=== PATIENT | male | born 1950 | race Two or more races ===

== ENCOUNTER 2018-03-31 07:00 | Day surgery (SDC) | payer MEDICAID ==
--- NOTE | 2018-03-29 10:29 | Pre-Procedure Note/Attestation ---
Pre-Procedure Note/Attestation Complete Prior to Procedure Planned Procedure: left Procedure Narrative: phaco with iol Indications for Procedure Pre-Operative Diagnosis: cataract Attestation I attest that I discussed the nature of the procedure; its benefits; risks and complications; and alternatives (and the risks and benefits of such alternatives ), prior to the procedure, with the patient (or the patient's legal loss control representative). I attest that, if there was a reasonable possibility of needing a blood transfusion, the patient (or the patient's legal loss control representative) was given the [facility] standardized written summary, pursuant to the Jatin[place] Blood Safety Act ([place] [facility] and Safety Code # 1645, as amended). I attest that I re-evaluated the patient just prior to the surgery and that there has been no change in the patient's H&P, except as documented below: Aren Arndt MD Mar 29, 2018 10:29
--- NOTE | 2018-03-29 11:14 | Opthalmology H&P ---
Ophthalmology H&P H&P Chief Complaint: decreased vision in left eye HPI Vision Affects Ability to: read, focus/use eyes together, manage personal affairs HPI Narrative BLURRY VISION Exam Visual Acuity: OD: 20/40 OS;20/125 Tension: OD; 14 OS;13 Eye Exam: normal OU: external exam, palpebral fissure-width, marginal reflex distance, levator function, corneas, anterior chambers; findings: lens - OD; NS OS;NS, fundus exam - NPDR Assessment/Plan Diagnosis: (1) Nuclear cataract of left eye Treatment Plan: cataract extraction w/ lens implant Goals of Treatment: improvement of vision, enhance quality of life Attestation Attestation The risks and benefits of the surgery as well as alternative procedures were explained to the patient in detail. Aren Arndt MD Mar 29, 2018 11:14
[~2018-03-31] VITALS: Ht 172.7 cm; Wt 104.3 kg
[2018-03-31] VITALS (9 sets, daily range): BP systolic 111–143; BP diastolic 70–85
[~2018-03-31 07:00] MED LIST: Akten 3.5% 1ml Btl LEFT EYE ONE; Proparacaine 0.5% Opth Soln 15ml LEFT EYE ONE; Tetracaine 0.5% Opth 4ml Soln LEFT EYE ONE
[2018-03-31] MEDS: Tropicamide 1% Opth 15ml Soln LEFT EYE SCH ×3 (11:50→12:07)
[2018-03-31] MEDS: Phenylephrine 10% Opth Soln 5ml LEFT EYE SCH ×3 (11:50→12:07)
[2018-03-31] MEDS: Tobramycin Op Soln 0.3% 5ml LEFT EYE SCH ×3 (11:50→12:07)
[2018-03-31] MEDS: Diclofenac Sod 0.1% Op Soln LEFT EYE SCH ×3 (11:50→12:07)
[2018-03-31] MEDS: Cyclopentolate 1% Opth Sol 2ml LEFT EYE SCH ×3 (11:51→12:07)
[2018-03-31] MEDS ORDERED: BSS 15ml BTL ONE ×2 (12:07→12:11)
[2018-03-31] MEDS ORDERED: EPINEPHrine 1mg/1ml Amp ONE (12:07)
[2018-03-31] MEDS ORDERED: Povidone-Iodine 5% opth solution ONE (12:07)
[2018-03-31] MEDS ORDERED: BSS 500ml btl ONE (12:07)
[2018-03-31] MEDS ORDERED: Sodium Hyaluronate 14 mg/ml 0.85ml ONE (12:07)
[2018-03-31] MEDS ORDERED: GLIPIZIDE5 MG ORAL (12:13)
[2018-03-31] MEDS ORDERED: BENAZEPRIL HCL10 MG ORAL (12:13)
[2018-03-31] MEDS ORDERED: METFORMIN HCL850 M1 ORAL (12:13)
[2018-03-31] MEDS ORDERED: GABAPENTIN300 MG ORAL (12:13)
[2018-03-31] MEDS ORDERED: TAMSULOSIN HCL0.4 MG ORAL (12:13)
[2018-03-31] MEDS ORDERED: ATORVASTATIN CA40 MG ORAL (12:13)
[2018-03-31] MEDS ORDERED: ASPIRIN81 MG ORAL (12:13)
[2018-03-31] MEDS ORDERED: Sterile Water Irrig 1000ml IRRIG ONE (12:30)
[2018-03-31] MEDS ORDERED: Pilocarpine 2% Opth 15ml Soln ONE (12:30)
[2018-03-31] MEDS ORDERED: LR 1000ml ONE (12:30)
[2018-03-31] MEDS ORDERED: Pred Forte 1% Opth Susp 1ml ONE (12:30)
[2018-03-31] MEDS ORDERED: Maxitrol Opth Oint 3.5gm ONE (12:30)
[2018-03-31] MEDS ORDERED: Dexamethasone 4mg/ml vial ONE (12:30)
[2018-03-31] MEDS ORDERED: NS Irrig 1000ml ONE (12:30)
[2018-03-31] MEDS ORDERED: Midazolam 2mg/2ml Inj ONE (12:36)
--- NOTE | 2018-03-31 12:49 | Anethesia Preoperative Eval ---
Anesthesia Pre-op PMH/ROS General Date of Evaluation: Mar 31, 2018 Time of Evaluation: 12:30 Anesthesiologist: Radha ASA Score: ASA 2 Mallampati Score Class I : Soft palate, uvula, fauces, pillars visible Class II: Soft palate, uvula, fauces visible Class III: Soft palate, base of uvula visible Class IV: Only hard plate visible Mallampati Classification: Class II Surgeon: Yris Diagnosis: left eye cataract Surgical Procedure: left eye cataract removal with IOL Anesthesia History: none Family History: no anesthesia problems Allergies: Coded Allergies: No Known Allergies (Unverified , 03/29/18) Medications: see eMAR Patient NPO?: Yes NPO Date: Mar 30, 2018 NPO Time: 18:00 Past Medical History Cardiovascular: Reports: HTN, other - hyperlipids Endocrine: Reports: DM Musculoskeletal/Integumentary: Reports: other - back pain PSxH Narrative: open heart sx Anesthesia Pre-op Phys. Exam Physician Exam Last Vital Signs Date Time Temp Pulse Resp B/P (MAP) Pulse Ox O2 Delivery O2 Flow Rate FiO2 03/31/18 12:19 Room Air 03/31/18 12:14 97.2 77 18 143/81 98 Constitutional: NAD Neurologic: CN 2-12 intact Cardiovascular: RRR Respiratory: CTA Gastrointestinal: S/NT/ND Airway Exam Mallampati Score: Class II MO: full ROM: full Teeth: missing Dentures: upper, lower Anesthesia Pre-op A/P Labs chart reviewed Accucheck BS 156 Studies Pre-op Studies: EKG - NSR Risk Assessment & Plan Assessment: A&Ox4 Plan: MAC Status Change Before Surgery: No Pre-Antibiotics Given Within 1 Hr of Incision: No Ania Garcia CRNA Mar 31, 2018 12:49
--- NOTE | 2018-03-31 12:50 | 48 Hour Post Anesthesia Eval ---
Post Anesthesia Evaluation Procedure: Left eye cataract removal with IOL Date of Evaluation: Mar 31, 2018 Time of Evaluation: 13:35 Blood Pressure Systolic: 118 0: 80 Pulse Rate: 73 Respiratory Rate: 20 Temperature (Fahrenheit): 97.5 O2 Sat by Pulse Oximetry: 97 Airway: patent Nausea: No Vomiting: No Hydration Status: adequate Cardiopulmonary Status: WNL Mental Status/LOC: patient returned to baseline Post-Anesthesia Complications: none Follow-up care needed: patient intructions given Ania Garcia CRNA Mar 31, 2018 12:50
--- NOTE | 2018-03-31 12:50 | Immediate Post-Op Evaluation ---
Immediate Post-Op Evalulation Immediate Post-Op Evalulation Procedure: Left eye cataract removal with IOL Date of Evaluation: Mar 31, 2018 Time of Evaluation: 13:23 IV Fluids: LR 260 ml Blood Products: 0 Estimated Blood Loss: 0 Urinary Output: 0 Blood Pressure Systolic: 118 Blood Pressure Diastolic: 83 Pulse Rate: 69 Respiratory Rate: 18 O2 Sat by Pulse Oximetry: 98 Temperature (Fahrenheit): 97.5 Pain Score (1-10): 0 Nausea: No Vomiting: No Complications none Patient Status: awake, reacts, patent Hydration Status: adequate Given Within 1 Hr of Incision: Ania Thrasher CRNA Mar 31, 2018 12:50
[2018-03-31] MEDS ORDERED: acetaZOLAMIDE 500mg Inj ONE (13:22)
[2018-03-31] MEDS ORDERED: fentaNYL 100 mcg/2 mL IV PRN (13:30)
--- NOTE | 2018-04-01 13:16 | Brief Operative Note ---
Immediate Post Operative Note Operative Note Chief Complaint: blurry vision Pre-op Diagnosis: cataract, OS Procedure: phaco with IOL, OS Post-op Diagnosis: Pseudophakia Post-op Diagnosis: same as pre-op Findings: consistent w/pre-op dx studies Surgeon: Yris Anesthesiologist: Radha Anesthesia: MAC Specimen: none Complications: none Condition: stable Fluids: LR Estimated Blood Loss: none Drains: none Implant(s) used?: Yes Aren Arndt MD Apr 01, 2018 13:16
--- NOTE | 2018-04-01 13:18 | Operative Note - PDOC ---
Operative Note Operative Note Date of Operation/Procedure: Mar 31, 2018 Chief Complaint: blurry vision Pre-op Diagnosis: cataract, OS Procedure: phaco with IOL, OS Post-op Diagnosis: Pseudophakia Post-op Diagnosis: same as pre-op Operative Findings: consistent w/pre-op dx studies Surgeon: Yris Anesthesiologist: Radha Anesthesia: MAC Specimen: none Complications: none Condition: stable Fluids: LR Estimated Blood Loss: none Drains: none Implant(s) used?: Yes Indications for Procedure cataract Description of Procedure This patient has been complaining visually significant cataract in the affected eye with the best corrected visual acuity under moderate glare conditions worse. The patient complains of difficulties with glare in performing activities of daily living and wants to manage personal affairs with comfort and accuracy and see well enough to move with safety at home and outdoors. The risks, benefits and alternatives of the procedure were discussed with the patient in the office prior to scheduling surgery. All questions from the patient were answered after the surgical procedure was explained in detail. The risks of the procedure as explained to the patient include, but are not limited to, pain, infection, bleeding, loss of vision, retinal detachment, need for further surgery, loss of lens nucleus, double vision, etc. Alternative procedures were discussed which include, to do nothing or seek a second opinion. Informed consent for this procedure was obtained from the patient. The patient was referred to a primary care physician for a cardiopulmonary clearance prior to surgery, after proper evaluation was done patient was properly scheduled for outpatient surgery. The patient was brought to the operating room where the anesthesiologist established I.V. lines and cardiac monitoring leads. Mild intravenous sedation was administered. The patient was then prepared with a 5% solution of povidone -iodine to the conjunctival fornix and lashes, and a 5% solution of povidone- iodine to the lids and periorbital skin. The patient was then draped in the usual sterile fashion. A lid speculum was then placed in the operative eye. A keratome blade was then used to create a biplanar incision into the anterior chamber. Viscoelastics was then instilled into the anterior chamber. A 3-mm single pass clear corneal incision was made just anterior to the vascular arcade of the temporal limbus using a keratome. Anterior capsulorrhexis was created. The nucleus was hydrodissected and hydrodelineated with a G-27 cannula, and was freely movable in the capsular bag. The nucleus was then phacoemulsified. Following the deep groove formation, the lens was split bimanually and epicortex removed under vacuum burst-mode phacoemulsification. Peripheral cortex was removed with the irrigation and aspiration handpiece. The capsular bag was expanded with viscoelastic. The intraocular lens was then inspected for right power and size and thought to be satisfactory. The implant was inspected under the microscope and found to be free of defects. The implant was inserted into the cartridge system under viscoelastic and placed in the capsular bag. The trailing haptic was positioned with the cartridge system. Viscoelastics was removed from the anterior chamber using the irrigation and aspiration unit. The corneal wound was then tested for leaks and none were found. The lid speculum were then removed. Sponge and needle counts were correct. An eye patch and shield were placed over the operative eye. The patient was taken to the recovery room in stable condition. There were no complications. The patient tolerated the procedure well. The patient was then transferred to the ambulatory surgery unit in stable and satisfactory condition , was given detailed written instructions and asked to follow up in the office the next day. Aren Arndt MD Apr 01, 2018 13:18
== END 2018-03-31 15:33 | disposition home or self-care (01) ==
LOC: SUR 07:00
DX: H25.12 Age-related nuclear cataract, left eye (principal); E78.5 Hyperlipidemia, unspecified; I10 Essential (primary) hypertension; E11.40 Type 2 diabetes mellitus with diabetic neuropathy, unspecified; I73.9 Peripheral vascular disease, unspecified; I25.10 Atherosclerotic heart disease of native coronary artery without angina pectoris; K74.60 Unspecified cirrhosis of liver; E66.9 Obesity, unspecified; Z68.34 Body mass index [BMI] 34.0-34.9, adult; N40.0 Benign prostatic hyperplasia without lower urinary tract symptoms; D69.6 Thrombocytopenia, unspecified; M17.11 Unilateral primary osteoarthritis, right knee; F10.11 Alcohol abuse, in remission
CPT/HCPCS: 66984; 82962; J0171; J1100; J1120; J2250; J3370; V2632; Z7512; 94003; 94150

== ENCOUNTER 2018-06-16 05:12 | Day surgery (SDC) | payer MEDICAID ==
--- NOTE | 2018-06-13 14:09 | Pre-Procedure Note/Attestation ---
Pre-Procedure Note/Attestation Complete Prior to Procedure Planned Procedure: right Procedure Narrative: Cataract extraction With Intraocular Lens Implant Right Eye Indications for Procedure Pre-Operative Diagnosis: Cataract Right Eye Attestation I attest that I discussed the nature of the procedure; its benefits; risks and complications; and alternatives (and the risks and benefits of such alternatives ), prior to the procedure, with the patient (or the patient's legal public health representative). I attest that, if there was a reasonable possibility of needing a blood transfusion, the patient (or the patient's legal public health representative) was given the [facility] standardized written summary, pursuant to the Jatinder [place] Blood Safety Act ([place] Health and Safety Code # 1645, as amended). I attest that I re-evaluated the patient just prior to the surgery and that there has been no change in the patient's H&P, except as documented below: Aren Arndt MD Jun 13, 2018 14:09
--- NOTE | 2018-06-13 14:13 | Opthalmology H&P ---
Ophthalmology H&P H&P Chief Complaint: decreased vision in right eye HPI Vision Affects Ability to: read, manage personal affairs Past Ocular History: retinal problems - NPDR MODERATE-OU HPI Narrative Blurry Vision Exam Visual Acuity: OD 20/125 OS 20/30 Tension: OD 15 OS 16 Eye Exam: normal OU: external exam, palpebral fissure-width, marginal reflex distance, levator function, corneas, anterior chambers; findings: lens - NS CATARACT OD, fundus exam - NPDR -OU Assessment/Plan Treatment Plan: cataract extraction w/ lens implant Goals of Treatment: improvement of vision, enhance quality of life Attestation Attestation The risks and benefits of the surgery as well as alternative procedures were explained to the patient in detail. Aren Arndt MD Jun 13, 2018 14:13
[2018-06-16] VITALS (9 sets, daily range): BP systolic 101–110; BP diastolic 59–73
[~2018-06-16] VITALS: Ht 167.6 cm; Wt 95.3 kg
[~2018-06-16 05:12] MED LIST changes: +ASPIRIN81 MG ORAL; +ATORVASTATIN CA40 MG ORAL; -Akten 3.5% 1ml Btl LEFT EYE ONE; +BENAZEPRIL HCL10 MG ORAL; +GABAPENTIN300 MG ORAL; +GLIPIZIDE5 MG ORAL; +METFORMIN HCL850 M1 ORAL; -Proparacaine 0.5% Opth Soln 15ml LEFT EYE ONE; +TAMSULOSIN HCL0.4 MG ORAL; -Tetracaine 0.5% Opth 4ml Soln LEFT EYE ONE
[2018-06-16] MEDS: Cyclopentolate 1% Opth Sol 2ml RIGHT EYE SCH ×3 (05:57→06:20)
[2018-06-16] MEDS: Phenylephrine 10% Opth Soln 5ml RIGHT EYE SCH ×3 (05:58→06:21)
[2018-06-16] MEDS: Tropicamide 1% Opth 15ml Soln RIGHT EYE SCH ×3 (05:58→06:20)
[2018-06-16] MEDS: Tobramycin Op Soln 0.3% 5ml RIGHT EYE SCH ×3 (05:59→06:21)
[2018-06-16] MEDS ORDERED: Pred Forte 1% Opth Susp 1ml ONE (07:00)
[2018-06-16] MEDS ORDERED: Dexamethasone 4mg/ml vial ONE (07:00)
[2018-06-16] MEDS ORDERED: Tetracaine 0.5% Opth 4ml Soln RIGHT EYE ONE (07:00)
[2018-06-16] MEDS ORDERED: Diclofenac Sod 0.1% Op Soln RIGHT EYE SCH (07:00)
[2018-06-16] MEDS ORDERED: Maxitrol Opth Oint 3.5gm ONE (07:00)
[2018-06-16] MEDS ORDERED: Pilocarpine 1% Opth 15ml Soln ONE (07:00)
[2018-06-16] MEDS ORDERED: Akten 3.5% 1ml Btl RIGHT EYE ONE (07:00)
[2018-06-16] MEDS ORDERED: Proparacaine 0.5% Opth Soln 15ml RIGHT EYE ONE (07:00)
[2018-06-16] MEDS ORDERED: Lidocaine 4% Amp ONE (07:05)
[2018-06-16] MEDS ORDERED: EPINEPHrine 1mg/1ml Amp ONE (07:05)
[2018-06-16] MEDS ORDERED: Carbachol 0.01% Op Soln 1.5ml vial ONE (07:05)
[2018-06-16] MEDS ORDERED: Lidocaine 2% MPF 5ml Vial INJ ONE (07:05)
[2018-06-16] MEDS ORDERED: acetaZOLAMIDE 500mg Inj ONE (07:06)
[2018-06-16] MEDS ORDERED: BSS 500ml btl ONE (07:07)
[2018-06-16] MEDS ORDERED: BSS 15ml BTL ONE (07:07)
[2018-06-16] MEDS ORDERED: Povidone-Iodine 5% opth solution ONE (07:07)
[2018-06-16] MEDS ORDERED: Bupivacaine 0.75% 30ml vial INJ ONE (07:07)
[2018-06-16] MEDS ORDERED: fentaNYL 100 mcg/2 mL IV ONE (07:08)
[2018-06-16] MEDS ORDERED: Sodium Hyaluronate 14 mg/ml 0.85ml ONE (07:08)
[2018-06-16] MEDS ORDERED: Midazolam 2mg/2ml Inj ONE (07:08)
[2018-06-16] MEDS ORDERED: Propofol 200mg/20ml IV ONE (07:10)
[2018-06-16] MEDS ORDERED: NS Irrig 1000ml ONE (07:30)
[2018-06-16] MEDS ORDERED: LR 1000ml ONE (07:30)
[2018-06-16] MEDS ORDERED: Sterile Water Irrig 1000ml IRRIG ONE (07:30)
--- NOTE | 2018-06-16 07:44 | Anethesia Preoperative Eval ---
Anesthesia Pre-op PMH/ROS General Date of Evaluation: Jun 16, 2018 Time of Evaluation: 07:20 Anesthesiologist: Stanley ASA Score: ASA 3 Mallampati Score Class I : Soft palate, uvula, fauces, pillars visible Class II: Soft palate, uvula, fauces visible Class III: Soft palate, base of uvula visible Class IV: Only hard plate visible Mallampati Classification: Class II Surgeon: Yris Diagnosis: R eye cataract Surgical Procedure: R eye cataract extraction Anesthesia History: none Social History: alcohol use - h/o abuse Family History: no anesthesia problems Allergies: Coded Allergies: No Known Allergies (Unverified , 03/29/18) Medications: see eMAR Patient NPO?: Yes Past Medical History Cardiovascular: Reports: HTN, CAD - stable, valve dz - s/p aortic valve replacement; Denies: NC, arrhythmia, other Pulmonary: Denies: asthma, COPD, FREDIS, other Gastrointestinal/Genitourinary: Reports: GERD, CRI, other - BPH; Denies: ESRD Neurologic/Psychiatric: Denies: dementia, CVA, depression/anxiety, TIA, other Endocrine: Reports: DM - on pills; Denies: hypothyroidism, steroids, other HEENT: Reports: cataract (L), cataract (R); Denies: glaucoma, [place] (L), [place] (R), other Hematology/Immune: Reports: anemia - mild; Denies: DVT, bleeding disorder, other Musculoskeletal/Integumentary: Reports: DJD; Denies: OA, RA, DDD, edema, other Other: obesity PMH Narrative: as above PSxH Narrative: see chart Anesthesia Pre-op Phys. Exam Physician Exam Last Vital Signs Date Time Temp Pulse Resp B/P (MAP) Pulse Ox O2 Delivery O2 Flow Rate FiO2 06/16/18 06:13 98.2 79 20 110/70 95 Room Air Constitutional: NAD Neurologic: CN 2-12 intact Cardiovascular: RRR, no M/R/G Respiratory: CTA Gastrointestinal: other - obesity Airway Exam Mallampati Score: Class III MO: limited Neck: short ROM: limited Teeth: missing Dentures: no upper, no lower Anesthesia Pre-op A/P Labs see chart Studies Pre-op Studies: EKG - SR Risk Assessment & Plan Assessment: ASA 3 Plan: MAC Status Change Before Surgery: No Pre-Antibiotics Drug: none Pool Angel MD Jun 16, 2018 07:43
[2018-06-16] MEDS ORDERED: DiphenhydrAMINE 50mg/ml Inj IVP PRN (07:45)
[2018-06-16] MEDS ORDERED: fentaNYL 100 mcg/2 mL IV PRN (07:45)
--- NOTE | 2018-06-16 08:18 | Immediate Post-Op Evaluation ---
Immediate Post-Op Evalulation Immediate Post-Op Evalulation Procedure: R eye cataract extraction with IOL Date of Evaluation: Jun 16, 2018 Time of Evaluation: 08:17 IV Fluids: 200 Blood Products: none Estimated Blood Loss: none Urinary Output: none Blood Pressure Systolic: 110 Blood Pressure Diastolic: 64 Pulse Rate: 74 Respiratory Rate: 20 O2 Sat by Pulse Oximetry: 98 Temperature (Fahrenheit): 97.7 Pain Score (1-10): 1 Nausea: No Vomiting: No Complications none Patient Status: awake, patent, none Hydration Status: adequate Pool Angel MD Jun 16, 2018 08:18
--- NOTE | 2018-06-18 09:49 | Brief Operative Note ---
Immediate Post Operative Note Operative Note Chief Complaint: blurry vision Pre-op Diagnosis: Cataract Right Eye Procedure: phaco with IOL, OD Post-op Diagnosis: Pseudophakia Post-op Diagnosis: same as pre-op Findings: consistent w/pre-op dx studies Surgeon: Yris Anesthesiologist: Stanley Anesthesia: MAC Specimen: none Complications: none Condition: stable Fluids: LR Estimated Blood Loss: none Drains: none Implant(s) used?: Yes Aren Arndt MD Jun 18, 2018 09:49
--- NOTE | 2018-06-18 09:51 | Operative Note - PDOC ---
Operative Note Operative Note Date of Operation/Procedure: Jun 16, 2018 Chief Complaint: blurry vision Pre-op Diagnosis: Cataract Right Eye Procedure: phaco with IOL, OD Post-op Diagnosis: Pseudophakia Post-op Diagnosis: same as pre-op Operative Findings: consistent w/pre-op dx studies Surgeon: Yris Anesthesiologist: Stanley Anesthesia: MAC Specimen: none Complications: none Condition: stable Fluids: LR Estimated Blood Loss: none Drains: none Implant(s) used?: Yes Indications for Procedure cataract Description of Procedure This patient has been complaining visually significant cataract in the affected eye with the best corrected visual acuity under moderate glare conditions worse. The patient complains of difficulties with glare in performing activities of daily living and wants to manage personal affairs with comfort and accuracy and see well enough to move with safety at home and outdoors. The risks, benefits and alternatives of the procedure were discussed with the patient in the office prior to scheduling surgery. All questions from the patient were answered after the surgical procedure was explained in detail. The risks of the procedure as explained to the patient include, but are not limited to, pain, infection, bleeding, loss of vision, retinal detachment, need for further surgery, loss of lens nucleus, double vision, etc. Alternative procedures were discussed which include, to do nothing or seek a second opinion. Informed consent for this procedure was obtained from the patient. The patient was referred to a primary care physician for a cardiopulmonary clearance prior to surgery, after proper evaluation was done patient was properly scheduled for outpatient surgery. The patient was brought to the operating room where the anesthesiologist established I.V. lines and cardiac monitoring leads. Mild intravenous sedation was administered. The patient was then prepared with a 5% solution of povidone -iodine to the conjunctival fornix and lashes, and a 5% solution of povidone- iodine to the lids and periorbital skin. The patient was then draped in the usual sterile fashion. A lid speculum was then placed in the operative eye. A keratome blade was then used to create a biplanar incision into the anterior chamber. Viscoelastics was then instilled into the anterior chamber. A capsulorrhexis was then fashioned with an utrata forceps. BSS and a cannula were then used to hydrodissect and hydro delineate the lens. Paracentesis incision was made at 3 o'clock with sharp blade. The phacoemulsification unit, after being properly adjusted and tested, was then used to emulsify the nucleus. Residual cortical material was aspirated with the irrigation and aspiration unit. [place]al[place] was then instilled into the anterior chamber. The corneal wound was then enlarged to the size of the optic with the chanda keratome blade. The intraocular lens was then inspected for right power and size and thought to be satisfactory. Then the lens was gently placed in the capsular bag. Positioning within the capsular bag was confirmed by direct visualization. Optic centration was accomplished with a Sins[place] hook. Viscoelastics was removed from the anterior chamber using the irrigation and aspiration unit. The corneal wound was then tested for leaks and none were found. The lid speculum were then removed. Sponge and needle counts were correct. An eye patch and shield were placed over the operative eye. The patient was taken to the recovery room in stable condition. There were no complications. The patient tolerated the procedure well. The patient was then transferred to the ambulatory surgery unit in stable and satisfactory condition , was given detailed written instructions and asked to follow up in the office the next day. Aren Arndt MD Jun 18, 2018 09:51
== END 2018-06-16 09:40 | disposition home or self-care (01) ==
LOC: SUR 05:12
DX: H25.11 Age-related nuclear cataract, right eye (principal); Z79.84 Long term (current) use of oral hypoglycemic drugs; E78.5 Hyperlipidemia, unspecified; E11.22 Type 2 diabetes mellitus with diabetic chronic kidney disease; I12.9 Hypertensive chronic kidney disease with stage 1 through stage 4 chronic kidney disease, or unspecified chronic kidney disease; N18.9 Chronic kidney disease, unspecified; K74.60 Unspecified cirrhosis of liver; I25.10 Atherosclerotic heart disease of native coronary artery without angina pectoris; K21.9 Gastro-esophageal reflux disease without esophagitis; D64.9 Anemia, unspecified; M19.90 Unspecified osteoarthritis, unspecified site; E66.9 Obesity, unspecified; N40.0 Benign prostatic hyperplasia without lower urinary tract symptoms
CPT/HCPCS: 66984; 82962; J0171; J1100; J2250; J2704; J3010; J3370; V2632; Z7512; 94003; 94150